=== PATIENT | female | born 1960 | race Caucasian/White ===

== ENCOUNTER 2017-06-10 09:52 | Emergency (ER) | payer BC, OTHER ==
--- NOTE | 2017-06-10 12:23 | RAD ---
INDICATION: Right leg and calf pain. COMPARISON: There are no prior studies available for comparison. TECHNIQUE: Multiple real-time, color flow and Doppler tracings of the right lower extremity were obtained. FINDINGS: The common femoral, femoral, profunda femoral and popliteal veins all demonstrate normal compressibility, augmentation with compression and phasic response with respiration. The posterior tibial and peroneal veins demonstrate normal compressibility and augmentation with compression. IMPRESSION: NO EVIDENCE FOR DEEP VENOUS THROMBOSIS.
[2017-06-10 12:40] VITALS: BP 149/76
--- NOTE | 2017-06-10 12:40 | UC ---
Lower Extremity/Ankle HPI - HPI Summary HPI Summary: right leg pain x 1 day no known injury , pain is in the back of her right thigh, and right calf no swelling, no redness, no cough ,no sob no recent travels, not a smoker - History of Current Complaint Chief Complaint: UCLowerExtremity Stated Complaint: RT LEG PAIN Time Seen by Provider: 06/10/17 11:00 Hx Obtained From: Patient Onset/Duration: Gradual Onset, Lasting Days - 1, Still Present Severity Initially: Moderate Severity Currently: Moderate Aggravating Factor(s): Standing, Ambulation Alleviating Factor(s): Nothing Able to Bear Weight: Yes - Risk Factors DVT Risk Factors: Negative - Allergies/Home Medications Allergies/Adverse Reactions: Allergies Allergy/AdvReac Type Severity Reaction Status Date / Time No Known Allergies Allergy Verified 06/10/17 10:36 Home Medications: Home Medications Cyclobenzaprine TAB* [Flexeril 10 MG TAB*] 10 mg PO TID PRN 06/10/17 [History Confirmed 06/10/17] Ibuprofen TAB* [Advil TAB*] 800 mg PO Q8H PRN 06/10/17 [History Confirmed ] Levothyroxine TAB* [Synthroid TAB*] 50 mcg PO DAILY 06/10/17 [History Confirmed 06/10/17] Liniments & Rubs [Bioflexor] 1 applic TOPICAL SEE INSTRUCTIONS PRN 06/10/17 [ History Confirmed 06/10/17] Menthol (Topical Analgesic) [Icy Hot] 1 applic TOPICAL SEE INSTRUCTIONS PRN [History Confirmed 06/10/17] PMH/Surg Hx/FS Hx/Imm Hx Endocrine History: Hypothyroidism - Surgical History Surgical History: Yes Surgery Procedure, Year, and Place: Cholecystectomy, 2013, [place]; , 1987, [place]; Tonsillectomy, [facility], [place] - Social History Alcohol Use: Rare Substance Use Type: None Smoking Status (MU): Never Smoked Tobacco - Immunization History Most Recent Influenza Vaccination: Not the Season Review of Systems Constitutional: Negative Skin: Negative Eyes: Negative ENT: Negative Respiratory: Negative Is Patient Immunocompromised?: No All Other Systems Reviewed And Are Negative: Yes Physical Exam Triage Information Reviewed: Yes Appearance: Well-Appearing, No Pain Distress, Obese Vital Signs: Initial Vital Signs Temp 98.1 F 06/10/17 10:34 Pulse 80 06/10/17 10:34 Resp 20 06/10/17 10:34 BP 146/69 06/10/17 10:34 Pulse Ox 98 06/10/17 10:34 Vital Signs Reviewed: Yes Eye Exam: Normal Eyes: Positive: Conjunctiva Clear ENT: Positive: Normal ENT inspection, Hearing grossly normal, Pharynx normal Neck exam: Normal Neck: Positive: Supple, Nontender, No Lymphadenopathy Respiratory: Positive: Chest non-tender, Lungs clear, Normal breath sounds Cardiovascular: Positive: RRR, No Murmur, Pulses Normal, Brisk Capillary Refill Abdominal Exam: Normal Musculoskeletal: Positive: Other: - right leg / calf : no swelling, no tederness , good rom normal strength , negative Aguila sign Diagnostics - Laboratory Diagnostic Studies Completed/Ordered: right lower leg doppler study: no DVT Lower Extremity Course/Dx - Differential Dx/Diagnosis Provider Diagnoses: right leg pain Discharge - Discharge Plan Condition: Stable Disposition: HOME Prescriptions: traMADol TAB* [Ultram*] 50 mg PO Q6HR PRN #20 tab MDD 4 PRN Reason: Pain Patient Education Materials: Leg Pain (ED) Forms: *Work Release Referrals: Sun Arredondo MD [Primary Care Provider] - 7 Days Additional Instructions: normal right lower ext doppler study , no DVT most likely pain is due to strain / pinched nerve cont. with rest, elevation , Ultram as needed for pain
== END 2017-06-10 12:40 | disposition home or self-care (01) ==
LOC: UCCORT 09:52
DX: M79.604 Pain in right leg (principal); E03.9 Hypothyroidism, unspecified
CPT/HCPCS: 99212; G0463

== ENCOUNTER 2017-06-26 11:05 | Emergency (ER) | payer BC, OTHER ==
[2017-06-26 12:07] VITALS: BP 160/84
--- NOTE | 2017-06-26 13:51 | UC ---
Back Pain HPI - HPI Summary HPI Summary: Low back pain on the right radiating into the left leg for about 2-3 weeks. No trauma or incident. She was seen here and these records were reviewed. DVT ruled out. She has had improved pain but has had right knee and calf numbness for about about this time. She denies weakness. She denies saddle anesthesia. She has had similar symptoms in the past with her neck and right arm pain and numbness. This resolved with PT. She has had improvement in thepast with gabapentin and tramadol. - History of Current Complaint Chief Complaint: UCLowerExtremity Stated Complaint: RECHECK RIGHT SCIATICA Time Seen by Provider: 06/26/17 12:00 Hx Last Menstrual Period: age 50 Onset/Duration: Gradual Onset, Lasting Weeks Timing: Constant Severity Initially: Severe Severity Currently: Moderate Back Pain: Is Discrete @ Character: Dull, Aching Aggravating Factor(s): Movement, Lifting, Bending, Walking Alleviating Factor(s): Position Associated Signs And Symptoms: Positive: Numbness. Negative: Swelling, Redness , Weakness, Abdominal Pain, Bladder Incontinence, Bowel Incontinence, Weight Loss - Allergies/Home Medications Allergies/Adverse Reactions: Allergies Allergy/AdvReac Type Severity Reaction Status Date / Time No Known Allergies Allergy Verified 06/26/17 12:07 PMH/Surg Hx/FS Hx/Imm Hx Previously Healthy: No - prior neck pain. - Surgical History Surgical History: Yes Surgery Procedure, Year, and Place: Cholecystectomy, 2013, [place]; , 1987, [place]; Tonsillectomy, ~[facility], [place] - Family History Known Family History: Positive: Other - No related back history in the family. - Social History Occupation: Employed Full-time Alcohol Use: Rare Substance Use Type: None Smoking Status (MU): Never Smoked Tobacco - Immunization History Most Recent Influenza Vaccination: Not the 2017/2017 Season Review of Systems Musculoskeletal: Arthralgia, Myalgia Neurological: Paresthesia, Numbness All Other Systems Reviewed And Are Negative: Yes Physical Exam Triage Information Reviewed: Yes Appearance: Well-Appearing, No Pain Distress, Well-Nourished Vital Signs: Initial Vital Signs Temp 99 F 06/26/17 11:57 Pulse 92 06/26/17 11:57 Resp 18 06/26/17 11:57 BP 160/84 06/26/17 11:57 Vital Signs Reviewed: Yes Eyes: Positive: Conjunctiva Clear, Conjunctiva Inflamed ENT: Positive: Normal ENT inspection Neck: Negative: Nuchal Rigidity Respiratory: Positive: No respiratory distress, No accessory muscle use. Negative: Respiratory distress Cardiovascular: Positive: Brisk Capillary Refill Abdomen Description: Negative: Distended, Guarding Musculoskeletal: Positive: Strength Intact, ROM Intact, No Edema Neurological Exam: Other - patellar reflexes arline 1/4 arline symmetric. Pin prick L4 -5 on the right hyperasthetic. Neurological: Positive: Alert, Muscle Tone Normal. Negative: Fatigued Psychological Exam: Normal Psychological: Positive: Age Appropriate Behavior Skin: Negative: rashes Back Pain Course/Dx - Differential Dx/Diagnosis Provider Diagnoses: right back pain and sciatic/radiculopathy. Discharge - Discharge Plan Condition: Good Disposition: HOME Prescriptions: Gabapentin CAP(*) [Neurontin 300 CAP(*)] 300 mg PO BID #60 cap traMADol TAB* [Ultram*] 50 mg PO Q8H PRN #30 tab MDD 3 PRN Reason: Pain Patient Education Materials: Sciatica (ED), Lumbar Radiculopathy (ED) Forms: *Work Release Referrals: Sun Arredondo MD [Primary Care Provider] - Erlin Jeronimo MD [Medical Doctor] - 1 Week
== END 2017-06-26 14:01 | disposition home or self-care (01) ==
LOC: UCCORT 11:05
DX: M54.41 Lumbago with sciatica, right side (principal); M54.16 Radiculopathy, lumbar region; Z90.49 Acquired absence of other specified parts of digestive tract
CPT/HCPCS: 99212; G0463